=== PATIENT | female | born 1940 | race Caucasian/White ===

== ENCOUNTER 2023-09-21 15:24 | Emergency (ER) | payer OTHER, MEDICARE ==
[~2023-09-21] VITALS: Ht 165.1 cm; Wt 88.4 kg
[2023-09-21] MEDS ORDERED: mupirocin 2% ointment 22GM TP ONE (18:20)
[2023-09-21 18:24] VITALS: BP 110/60; PULSE 74; RESP 16; TEMP 98.1; O2SAT 98
== END 2023-09-21 18:27 | disposition home or self-care (01) ==
LOC: ER 15:25
DX: S60.512A Abrasion of left hand, initial encounter (principal); S09.8XXA Other specified injuries of head, initial encounter; W01.0XXA Fall on same level from slipping, tripping and stumbling without subsequent striking against object, initial encounter; Y93.89 Activity, other specified; Y92.89 Other specified places as the place of occurrence of the external cause; Y99.8 Other external cause status
CPT/HCPCS: 70450; 70480; 72125; 99284

== ENCOUNTER 2023-12-25 08:05 | Emergency (ER) | payer OTHER ==
[~2023-12-25] VITALS: Ht 165.1 cm; Wt 89.5 kg
[2023-12-25 08:11] VITALS: TEMP 97.8
[2023-12-25 09:02] VITALS: BP 133/70; PULSE 82; RESP 15; O2SAT 94
[2023-12-25] MEDS ORDERED: BENZ-38 PO (10:28)
[2023-12-25] MEDS ORDERED: CELE-193 PO (10:28)
== END 2023-12-25 11:28 | disposition home or self-care (01) ==
LOC: ER 08:06
DX: K12.0 Recurrent oral aphthae (principal); Z20.822 Contact with and (suspected) exposure to COVID-19; R05.1 Acute cough; M19.90 Unspecified osteoarthritis, unspecified site; E78.00 Pure hypercholesterolemia, unspecified; I10 Essential (primary) hypertension; K21.9 Gastro-esophageal reflux disease without esophagitis
CPT/HCPCS: 36415; 87811; 99284